=== PATIENT | female | born 1980 | race Caucasian/White ===

== ENCOUNTER → 2018-05-20 15:11 | Outpatient (CLI) | payer BC, SELFPAY ==
[2018-05-27 09:51] LABS: HPV Reflexed? NOT INDICATED
== END ==
PROVIDERS: Visit Provider Obstetrics & Gynecology
DX: Z12.4 Encounter for screening for malignant neoplasm of cervix (principal)
CPT/HCPCS: 88175; G0145

== ENCOUNTER → 2022-05-13 | Outpatient (CLI) | payer BC, SELFPAY ==
[2022-05-20 11:57] LABS: HPV APTIMA, High Risk Negative (Negative)
== END | disposition home or self-care (01) ==
LOC: LABSPEC 09:36
PROVIDERS: Visit Provider Obstetrics & Gynecology
DX: Z12.4 Encounter for screening for malignant neoplasm of cervix (principal)
CPT/HCPCS: 87624; 88175; G0145

== ENCOUNTER → 2022-07-22 | Outpatient (CLI) | payer BC, SELFPAY ==
--- NOTE | 2022-07-22 10:36 | BI_ITS ---
MAMMOGRAPHY - BILATERAL SCREENING REASON FOR EXAM: Female, 42 years old. Routine annual screening examination. PERTINENT HISTORY: Grandmother with breast cancer. Aunt with breast cancer. TECHNIQUE: Digital bilateral breast ismael (3D mammographic acquisition) in the CC and MLO projections. 2-D mediolateral oblique (MLO) and craniocaudad (CC) views of both breasts were obtained. CAD: Full Field Digital Mammography with Computer Added Detection was performed. COMPARISON: None. Baseline examination. FINDINGS: Breast Composition: There are scattered areas of fibroglandular density. There are no dominant masses or suspicious calcifications. Small benign-appearing bilateral axillary lymph nodes. No other significant abnormalities are identified. BI/SCRN MAMM (CAD)W/ISMAEL BILAT IMPRESSION: Negative screening mammogram. Yearly followup mammogram recommended. (A) ASSESSMENT CATEGORY: BIRADS Category 2: Benign. A letter regarding these results will be sent to the patient by the facility within 30 days. Approximately 10% of breast cancers are not detected by mammography. A normal mammogram should not delay biopsy of a clinically suspicious abnormality. [id number] Electronically Signed: Fabio Duong MD at 11:18 EST ,
== END | disposition home or self-care (01) ==
LOC: OPBI 10:34
PROVIDERS: PCP Preventive Medicine Occupational Medicine; Referring Provider Obstetrics & Gynecology; Visit Provider Obstetrics & Gynecology
DX: Z12.31 Encounter for screening mammogram for malignant neoplasm of breast (principal); Z80.3 Family history of malignant neoplasm of breast
CPT/HCPCS: 77063; 77067

== ENCOUNTER → 2024-10-18 | Outpatient (CLI) | payer BC, SELFPAY ==
--- NOTE | 2024-10-18 08:47 | BI_ITS ---
PROCEDURE: SCRN MAMM (CAD)W/ISMAEL BILAT REASON FOR EXAM: F, Age 44 y/o , SCREENING. Family history of breast cancer her maternal great grandmother and maternal aunt in their 50s. TECHNIQUE: Bilateral screening digital breast tomosynthesis with 2D and 3D images. Computer aided detection. COMPARISON: 07/22/2022 FINDINGS: There are scattered areas of fibroglandular density. There is an asymmetry in the superior left breast at middle depth visualized on the MLO view. No suspicious masses, areas of developing architectural distortion, or suspicious calcifications in the right breast. BI/SCRN MAMM (CAD)W/ISMAEL BILAT IMPRESSION: The asymmetry in the superior left breast at middle depth seen on the MLO view requires further evaluation. Recommend diagnostic mammogram of the left breast, and ultrasound on the day of diagnostic if indica clau. BI-RADS 0: INCOMPLETE - NEED ADDITIONAL IMAGING EVALUATION. Follow-up code: Additional Views obtained/call backs The patient will be notified of the results by letter. Reading Location: [id number]
== END | disposition home or self-care (01) ==
LOC: OPBI 08:44
PROVIDERS: PCP Preventive Medicine Occupational Medicine; Referring Provider Preventive Medicine Occupational Medicine; Visit Provider Preventive Medicine Occupational Medicine
DX: Z12.31 Encounter for screening mammogram for malignant neoplasm of breast (principal)
CPT/HCPCS: 77063; 77067

== ENCOUNTER → 2024-10-27 | Outpatient (CLI) | payer BC, SELFPAY ==
--- NOTE | 2024-10-27 08:55 | BI_ITS ---
PROCEDURE: DIAG MAMM W/CAD, UNILAT; BREAST LIMITED UNILATERAL N/A; 10/27/2024 REASON FOR EXAM: 44-year-old female presents for recall from screen for a left breast asymmetry. Family history of breast cancer in maternal great grandmother and maternal aunt. TECHNIQUE: Left diagnostic digital breast tomosynthesis with 2D and 3D images. Computer aided detection. Targeted left breast ultrasound. COMPARISON: 10/18/2024, 07/22/2022 FINDINGS: MAMMOGRAM: TISSUE DENSITY: There are scattered areas of fibroglandular density. Follow-up evaluation performed for the left breast asymmetry seen on the examination of 10/18/2024. On the present examination, the asymmetry in the superior left breast at middle depth does not persist. ULTRASOUND: Ultrasound was targeted to the superior left breast. There is no sonographic correlate visualized. Otherwise, there is a benign intramammary lymph node at 3 o'clock 7 cm from the nipple measuring 0.8 x 0.7 x 0.3 cm. Also, there are 2 tiny hyperechoic masses at 1 o'clock 4 cm from the nipple measuring 0.5 x 0.4 x 0.4 cm, and at 12 o'clock 4 cm from the nipple measuring 0.6 x 0.4 x 0.2 cm, these may represent tiny lipomas. BI/DIAG MAMM W/CAD, UNILAT IMPRESSION: There is no evidence of malignancy in the left breast. BI-RADS 2: BENIGN. RECOMMEND ANNUAL MAMMOGRAPHIC SCREENING. Normal interval followup mammograms are recommended in 12 months. A letter with findings and recommendations will be mailed to the patient. ASSESSMENT: BIRADS 2 BENIGN FINDING RECOMMENDATION: 1: ROUTINE ANNUAL FOLLOW-UP Bilateral in 1 Year Reading Location: [id number]
--- NOTE | 2024-10-27 09:58 | US_ITS ---
PROCEDURE: DIAG MAMM W/CAD, UNILAT; BREAST LIMITED UNILATERAL N/A; 10/27/2024 REASON FOR EXAM: 44-year-old female presents for recall from screen for a left breast asymmetry. Family history of breast cancer in maternal great grandmother and maternal aunt. TECHNIQUE: Left diagnostic digital breast tomosynthesis with 2D and 3D images. Computer aided detection. Targeted left breast ultrasound. COMPARISON: 10/18/2024, 07/22/2022 FINDINGS: MAMMOGRAM: TISSUE DENSITY: There are scattered areas of fibroglandular density. Follow-up evaluation performed for the left breast asymmetry seen on the examination of 10/18/2024. On the present examination, the asymmetry in the superior left breast at middle depth does not persist. ULTRASOUND: Ultrasound was targeted to the superior left breast. There is no sonographic correlate visualized. Otherwise, there is a benign intramammary lymph node at 3 o'clock 7 cm from the nipple measuring 0.8 x 0.7 x 0.3 cm. Also, there are 2 tiny hyperechoic masses at 1 o'clock 4 cm from the nipple measuring 0.5 x 0.4 x 0.4 cm, and at 12 o'clock 4 cm from the nipple measuring 0.6 x 0.4 x 0.2 cm, these may represent tiny lipomas. US/Breast Limited Unilateral IMPRESSION: There is no evidence of malignancy in the left breast. BI-RADS 2: BENIGN. RECOMMEND ANNUAL MAMMOGRAPHIC SCREENING. Normal interval followup mammograms are recommended in 12 months. A letter with findings and recommendations will be mailed to the patient. ASSESSMENT: BIRADS 2 BENIGN FINDING RECOMMENDATION: 1: ROUTINE ANNUAL FOLLOW-UP Bilateral in 1 Year Reading Location: [id number]
== END | disposition home or self-care (01) ==
PROVIDERS: PCP Preventive Medicine Occupational Medicine; Referring Provider Preventive Medicine Occupational Medicine; Visit Provider Preventive Medicine Occupational Medicine
DX: R92.8 Other abnormal and inconclusive findings on diagnostic imaging of breast (principal)
CPT/HCPCS: 76642; 77061; 77065; G0279